=== PATIENT | female | born 1995 | race Caucasian/White ===

== ENCOUNTER 2023-01-18 06:48 | Inpatient (IN) | payer MEDICAID, SELFPAY ==
[2023-01-18] VITALS (21 sets, daily range): BP systolic 108–128; BP diastolic 69–82; PULSE 64–114; RESP 18; TEMP 36.9–37.8; O2SAT 99; BMI 23.0
[2023-01-18] MEDS: Lactated Ringers 1,000 ML 200 ML IV (06:55)
[2023-01-18] MEDS: LACTATED RINGERS 500 ML 999 ML IV (07:08)
[2023-01-18 07:09] LABS: Absolute Lymphocyte Count 1.54 X10^3/uL (0.83-4.51); Absolute Neutrophil Count 7.6 X10^3/uL (2.0-7.7); Basophil# 0.03 X10^3/uL; Basophil% 0.3 % (0-1); Eosinophil# 0.02 X10^3/uL; Eosinophils% 0.2 % (0-5); Hematocrit 29.8 % (37-47); Lymphocyte # 1.54 X10^3/ul (0.83-4.51); Lymphocyte % 15.5 % (19-41); Mean Corp Hgb Conc 30.2 g/dL (32-36); Mean Corpuscular Hgb 25.6 pg (27.0-32.0); Mean Corpuscular Volume 84.7 fL (81-99); Mean Platelet Vol. 10.1 fl (6.2-12.0); Monocyte# 0.69 X10^3/uL; Monocyte% 6.9 % (0-10); NRBC Flagged by Analyzer 0 % (0-5); Neutrophil # 7.56 X10^3/uL (2.7-7.7); Neutrophil % 76.2 % (47-70); Platelet Count 141 K/mm3 (150-450); RBC Distribution Width CV 13.3 % (11.6-14.6); RBC Distribution Width SD 40.7 fl (35.1-43.9); Red Blood Count 3.52 M/mm3 (4.2-5.4); White Blood Count 9.9 K/mm3 (4.4-11.0)
--- NOTE | 2023-01-18 07:12 | PCM.HP.OB ---
HPI - General General Date of Admission: 01/18/23 HPI Narrative FELICE LORA, is a 27 F at 40.1 weeks gestation who presents to triage in spontaneous, active labor. has been uneventful. She has a history of migraines, anxiety and depression. Maternal Data Information HARDY Calculator Estimated Delivery Date Method Current WG Current Estimate 01/17/23 Manual 40w 1d PFSH PFSH Medical History (Updated 01/18/23 @ 07:23 by Marla Marie CNM) Headache Home Medications aspirin 81 mg capsule 81 mg PO DAILY Check with primary doctor 01/18/23 [History Last Taken 01/17/23] magnesium 200 mg tablet 200 mg PO DAILY supplement 01/18/23 [History Last Taken 01/17/23] [id number] 1 mg tablet 1 tab PO DAILY 01/18/23 [History Last Taken 01/17/23] Allergy/AdvReac Type Severity Reaction Status Date / Time No Known Allergies Allergy Verified 01/18/23 07:14 Surgical History (Updated 01/18/23 @ 07:21 by Venessa Faye) History of surgery Social History Smoking Status: Never smoker ROS Eyes Eyes: Denies blurry vision, change in vision or spots in vision ENT HEENT: Denies dizziness or headache(s) Cardiovascular Cardiovascular: Denies abdominal pain, chest pain or dyspnea Respiratory/Chest Respiratory/Chest: Denies cough, dyspnea, shortness of breath at rest or shortness of breath with exertion Gastrointestinal Gastrointestinal: Denies abdominal pain, diarrhea or vomiting Genitourinary Genitourinary: Denies change in urinary stream, difficulty urinating or dysuria Musculoskeletal Musculoskeletal: Reports none Integumentary Integumentary: Denies rash Neurologic Neurologic: Denies dizziness, headache(s), memory loss or weakness Psychiatric Psychiatric: Reports none Vital Signs Vital Signs Vital Signs: Weight Weight: 130 lb 1.164 oz Body Mass Index (BMI) 23.0 Physical Exam Const alert, oriented x3 and no apparent distress General Appearance: cooperative Orientation / Consciousness: awake Exam Limitations: no limitations HEENT normocephalic Head and Scalp: normal to inspection Eyes General Eye: normal appearance of both eyes Neck full ROM and no lymphadenopathy Lymph Lymphatic: no lymphadenopathy noted Chest inspection of chest normal Resp normal respiratory effort, normal air movement and clear to auscultation bilaterally Effort and Inspection: able to speak in complete sentences and symmetric chest movement Cardio regular rate and regular rhythm GI normal to inspection, nondistended, normoactive bowel sounds Manual OB Exam: presentation cephalic Back/Spine normal ROM Extremity full ROM and no calf tenderness Skin no rashes or lesions noted General Skin Exam: no breakdown Neuro oriented x3 and CN's II-XII intact bilaterally Psych mental status grossly normal and thought process normal Labs Labs Labs: Blood Type Pending Antibody Screen Pending Hct 29.8 % (37-47) L Hgb 9.0 g/dL (12.0-15.0) L Syphilis Total Ab Pending Assessment & Plan (1) History of anxiety: (2) History of depression: (3) History of migraine headaches: (4) LGSIL on Pap smear of cervix: (5) 40 weeks gestation of : (6) Spontaneous onset of labor: PLAN: Plan CE 5-6cm/80/-1 Admit to labor and delivery Routine labs Start IV fluids and run per orders GBS negative Pain medication if indicated- patient desires unmedicated labor at this time Warm water immersion Anticipate Dr. Roman notified of admission
[2023-01-18 07:27] LABS: ROM Internal Control Test YES-OK TO RESULT pt. (Internal QC); ROM Patient Test Negative (Negative)
[2023-01-18 09:09] LABS: Syphilis Antibodies Non-reactive
[2023-01-18] MEDS: Oxytocin 15 Units/NS 250ml 15 UNITS/250 ML IV.SOLN 83 UNITS IV (12:34)
--- NOTE | 2023-01-18 13:08 | EX.PCM.OBRPT ---
Maternal Data Information HARDY Calculator Estimated Delivery Date Method Current WG Current Estimate 01/17/23 Manual 40w 1d Vaginal Delivery Maternal Presentation Maternal Presentation: Active Labor Operative Information Date of Procedure: 01/18/23 Pre-Operative Diagnosis: 40.1weeks gestation , active labor Post-Operative Diagnosis: same, live female infant Surgery / Procedure Performed: Spontaneous Vaginal Delivery Type of Anesthesia: None Estimated Blood Loss: 100 Time of Delivery: 12:25 Findings Description of Procedure: Patient progressed to fully dilated. Upon my arrival appreciated. With good maternal pushing efforts the 's head was delivered followed by the anterior and posterior shoulder. There was 1 loose nuchal that was reduced prior to delivery. The infant was then placed on the mother's chest for immediate skin to skin. The infant was vigorous at time of delivery. Delayed cord clamping was performed. Placenta delivered spontaneously. Vaginal and perineal tissue was intact. Presentation: Vertex Amniotic Membrane Rupture Type: Artificial Amniotic Fluid Description: Clear Placental Delivery Description: Spontaneous Placenta Disposition: [facility] Specimen(s) Removed: placenta Cord Vessel Description: 3 Vessels Cord Entanglement: None Nuchal Cord Compression: Without compression A Gender: Female (1 minute): 8 (5 minute): 9 Delayed Cord Clamping: Yes Post Vaginal Delivery Medications Given After Delivery: IV Pitocin and IM Pitocin Episiotomy Description: None Laceration: None Complication Complications: None
[2023-01-19] MEDS: 0.9% Saline Lock 10 ML Syringe IV (03:17)
[2023-01-19 03:22] VITALS: BP 105/70; PULSE 87; RESP 16; TEMP 36.9
[2023-01-19 06:31] LABS: Hematocrit 29.5 % (37-47); Hemoglobin 9.1 g/dL (12.0-15.0); Mean Corp Hgb Conc 30.8 g/dL (32-36); Mean Corpuscular Hgb 25.9 pg (27.0-32.0); Mean Corpuscular Volume 83.8 fL (81-99); Mean Platelet Vol. 9.8 fl (6.2-12.0); Platelet Count 126 K/mm3 (150-450); RBC Distribution Width CV 13.2 % (11.6-14.6); RBC Distribution Width SD 40.3 fl (35.1-43.9); Red Blood Count 3.52 M/mm3 (4.2-5.4); White Blood Count 15.4 K/mm3 (4.4-11.0)
[2023-01-19 08:10] VITALS: BP 109/73; PULSE 77; RESP 16; TEMP 36.6; O2SAT 98
--- NOTE | 2023-01-19 08:35 | PCM.PN.OB ---
Subjective Subjective pain well controlled, average lochia, no CERNA or visual changes Objective Data Objective Data Vital Signs: Vital Signs Temp Pulse Resp BP Pulse Ox O2 Del Method 97.8 F 77 16 109/73 98 Room Air 01/19/23 08:10 01/19/23 08:10 01/19/23 08:10 01/19/23 08:10 01/19/23 08:10 01/19/23 08:10 Oxygen Delivery Method Room Air Weight: 59 kg Body Mass Index (BMI) 23.0 Intake & Output: Intake and Output for Last 24 Hours 01/17/23 01/18/23 01/19/23 23:59 23:59 23:59 Intake Total 936.80 / 936.80 Output Total 100 / 100 Balance 836.80 / 836.80 Lab / Micro Data Result Diagrams: 01/19/23 06:10 Labs: Laboratory Results - last 24 hr 01/18/23 06:55: Blood Type O POSITIVE, Antibody Screen NEGATIVE 01/18/23 06:55: Syphilis Total Ab Non-reactive 01/19/23 06:10: WBC 15.4 H, RBC 3.52 L, Hgb 9.1 L, Hct 29.5 L, MCV 83.8, MCH 25.9 L, MCHC 30.8 L, RDW Std Deviation 40.3, RDW Coeff of Abhi 13.2, Plt Count 126 L, MPV 9.8 Physical Exam Const alert and no apparent distress Narrative: Fundus firm, below umbilicus. Assessment & Plan (1) Spontaneous onset of labor: PLAN: PPD#1 doing well. Routine care. and doing well. Likely Dc home tomorrow
[2023-01-19 12:00] VITALS: BP 109/71; PULSE 63; RESP 16; TEMP 36.4; O2SAT 98
[2023-01-19 16:01] VITALS: BP 102/65; PULSE 82; RESP 16; O2SAT 97
[2023-01-19 21:03] VITALS: BP 111/77; PULSE 69; RESP 18; TEMP 36.6
[2023-01-20 02:43] VITALS: BP 113/76; PULSE 71; RESP 16; TEMP 36.4; O2SAT 96
[2023-01-20 08:30] VITALS: BP 112/76; PULSE 82; RESP 16; TEMP 36.8; O2SAT 98
--- NOTE | 2023-01-20 10:28 | PCM.DC.SUM ---
Providers Date of Admission: 01/18/23 Date of Discharge: 01/20/23 Primary Care Physician: Michelle Primary Care Phys Reason For Visit: VAG DELIVERY Diagnosis Discharge Diagnosis (1) Spontaneous onset of labor: Status: Acute Plan: PPD#1 doing well. Routine care. and doing well. Likely Dc home tomorrow Medications at Discharge Home Medications magnesium 200 mg tablet 200 mg PO DAILY supplement 01/18/23 [id number] 1 mg tablet 1 tab PO DAILY 01/18/23 Hospital Course Operations None Summary of Care Provided Hospital Course: Patient was admitted in active labor on 01/18/2023. She had a spontaneous vaginal delivery on 01/18/2023 without difficulty. By day #2 she was ambulating, urinating and tolerating regular diet. She was ready for discharge. She is to continue her vitamins and follow-up in the office in 1-2 in 6 weeks or as needed. Physical Exam Narrative Patient denies any headache visual changes. Feeling well overall. Const alert and no apparent distress Narrative: Fundus firm, below umbilicus. Weight / BMI Weight Weight: 59 kg Body Mass Index (BMI) 23.0 ABG / Lab / Microbiology Data Result Diagrams: 01/19/23 06:10 Meaningful Use Info Meaningful Use Diagnoses (Choose all that apply): None applicable Discharge Plan Admission Admit Date/Time: 01/18/23 06:48 Primary Reason for Your Visit: Vaginal delivery Attending Provider: Rand Mcpherson Primary Care Provider: Kobe Thornton,Michelle Primary Discharge Orders/Prescriptions Prescriptions: Continued [id number] 1 mg Tablet 1 tab PO DAILY magnesium 200 mg Tablet 200 mg PO DAILY Discontinued aspirin 81 mg Capsule 81 mg PO DAILY Referrals / Follow Up: Care Physician,Michelle Primary [Primary Care Provider] - Disposition Disposition (needs filled in before D/C Order can be placed): Home, Self Care
[2023-01-20 12:41] VITALS: BP 105/72; PULSE 97; RESP 16; TEMP 36.8; O2SAT 98
== END 2023-01-20 13:15 | disposition home or self-care (01) | DRG 560 ==
LOC: WPOUT 06:49 → WP 06:49
PROVIDERS: Admitting Provider Obstetrics & Gynecology; Referring Provider Advanced Practice Midwife; Visit Provider Obstetrics & Gynecology
DX: O48.0 Post-term pregnancy (principal); Z37.0 Single live birth; O69.81X0 Labor and delivery complicated by cord around neck, without compression, not applicable or unspecified; Z3A.40 40 weeks gestation of pregnancy; Z79.82 Long term (current) use of aspirin
CPT/HCPCS: 59050; 84112; 85025; 85027; 86780; 86850; 86900; 86901; 99221; J7120; A4216; G0378